=== PATIENT | male | born 1985 | race Two or more races ===

== ENCOUNTER 2018-06-21 16:16 | Emergency (ER) | payer MEDICAID ==
[~2018-06-21] VITALS: Ht 172.7 cm; Wt 68.0 kg
[2018-06-21 16:20] VITALS: BP 140/77
--- NOTE | 2018-06-21 16:20 | NUR ---
ED Nurse Note: Patient biba c/o an overdose, patient was given 5mg of narcan on the field, patient is alert and oriented x4, ambulatory at time of arrival. Patient states that he drank a "couple of beers" and denies any drug use. Patient's heart rate is currently 132, Dr. Clark aware
[2018-06-21] MEDS ORDERED: NARCAN4 MG NS (17:25)
[2018-06-21] MEDS ORDERED: KENALOG 0.025%15 GM APPLIC (17:34)
--- NOTE | 2018-06-21 17:45 | NUR ---
ED Nurse Note: Jourdann is leaving AMA, patient was given instructions of leaving ama such as however at time of departure, patient was given 2 prescriptions, including narcan. patient is alert and oriented x4, ambulatory with a steady gait
[2018-06-21 20:40] VITALS: BP 125/75
--- NOTE | 2018-06-22 00:09 | Emergency Room Report ---
History of Present Illness General Chief Complaint: Overdose Source: Patient, Medical Record Present Illness HPI Patient is a 32-year-old male brought in by EMS after increased altered mental status. Patient reportedly had been given Narcan 5 mg intramuscularly. Patient states that he had been drinking alcohol was awakened by paramedics. He denies any current symptoms. He states that he had not been having any vomiting or diarrhea. He denies any drug use. Patient states he does not want to remain in the hospital. Allergies: Coded Allergies: No Known Allergies (Unverified , 06/21/18) Patient History Past Medical History: see triage record Reviewed Nursing Documentation: PMH: Agreed; PSxH: Agreed Nursing Documentation-PMH Past Medical History: No History, Except For Review of Systems All Other Systems: negative except mentioned in HPI Physical Exam Vital Signs Date Time Temp Pulse Resp B/P (MAP) Pulse Ox O2 Delivery O2 Flow Rate FiO2 06/21/18 16:13 98.4 133 16 140/77 99 Room Air General Appearance: well appearing, no apparent distress, alert, GCS 15 Head: normocephalic, atraumatic ENT: hearing grossly normal, normal voice Neck: full range of motion, supple Respiratory: no respiratory distress, speaking full sentences Cardiovascular #1: normal inspection Musculoskeletal: no calf tenderness Neurologic: normal inspection, alert, oriented x3, responsive, reinforcing iron and rebar workers III-XII nml as tested, normal gait Psychiatric: mood/affect normal Skin: no rash Medical Decision Making Diagnostic Impression: Primary Impression: Overdose ER Course Patient presented after possible overdose. Differential diagnosis include was not limited to alcohol intoxication, narcotic overdose, psychosis among others. Patient has a benign exam and does not appear to require any further imaging or laboratory testing at this time patient appears awake and alert. patient appears to be capable of making his own decisions. Patient was given prescription for naloxone as well as for steroid cream due to the patient's psoriasis. Patient was advised risk of recurrence of overdose after Narcan wears off and he indicated understanding and refuses to stay for observation. Patient was noted to be ambulatory without assistance at the time of discharge did not appear to be psychotic Last Vital Signs Date Time Temp Pulse Resp B/P (MAP) Pulse Ox O2 Delivery O2 Flow Rate FiO2 06/21/18 20:40 98.4 102 16 125/75 99 Room Air Status: improved Disposition: AGAINST MEDICAL ADVICE Condition: Stable Scripts Triamcinolone Acet (Triamcinolone Acetonide) 15 Gm Cream..g. 15 GM APPLIC DAILY, #15 GM Prov: Wicho Clark MD 06/21/18 Naloxone HCl (Narcan) 4 Mg [place] 4 MG NS DAILY, #1 SPRAY Prov: Wicho Clark MD 06/21/18 Referrals: NOT CHOSEN IPA/,REFERRING (PCP) Patient Instructions: Alcohol Abuse and Nutrition Wicho Clark MD Jun 22, 2018 00:09
== END 2018-06-21 18:00 | disposition left against medical advice (07) ==
LOC: EDBD 16:16 → EMR 17:47
DX: T50.7X1A Poisoning by analeptics and opioid receptor antagonists, accidental (unintentional), initial encounter (principal); Z72.89 Other problems related to lifestyle; L40.9 Psoriasis, unspecified; Z53.21 Procedure and treatment not carried out due to patient leaving prior to being seen by health care provider
CPT/HCPCS: 99282